=== PATIENT | female | born 1980 | race Two or more races ===

== ENCOUNTER 2021-03-30 10:05 | Outpatient (CLI) | payer OTHER ==
[~2021-03-30 10:05] MED LIST: ZYRTEC1 MG/ML
== END 2021-03-30 10:23 | disposition home or self-care (01) ==
LOC: RAD 10:05
PROVIDERS: ATTEND Internal Medicine Cardiovascular Disease
DX: I10 Essential (primary) hypertension (principal); N60.11 Diffuse cystic mastopathy of right breast; Z12.31 Encounter for screening mammogram for malignant neoplasm of breast

== ENCOUNTER 2021-03-30 11:51 | Outpatient (CLI) | payer OTHER | END 2021-03-30 11:53 | disposition home or self-care (01) | LOC: NUCLEAR 11:51 | PROVIDERS: ATTEND Internal Medicine Cardiovascular Disease | DX: I10 Essential (primary) hypertension (principal) ==

== ENCOUNTER 2024-04-08 20:08 | Emergency (ER) | payer OTHER ==
[~2024-04-08] VITALS: Ht 162.6 cm; Wt 90.7 kg
[2024-04-08] MEDS ORDERED: COZAAR25 MG (20:20)
[2024-04-08] MEDS ORDERED: ORPHENADRINE CITRATE 30 MG/ML AMPUL IM ONE (21:15)
[2024-04-08] MEDS ORDERED: DEXAMETHASONE SODIUM PHOSPHATE 4 MG/ML VIAL IM ONE (21:15)
[2024-04-08] MEDS ORDERED: KETOROLAC TROMETHAMINE 60 MG VIAL IM ONE (21:15)
== END 2024-04-08 21:25 | disposition home or self-care (01) ==
LOC: ER 20:10
DX: G44.209 Tension-type headache, unspecified, not intractable (principal); G47.30 Sleep apnea, unspecified; I10 Essential (primary) hypertension

== ENCOUNTER → 2024-10-17 07:57 | Outpatient (CLI) | payer OTHER ==
[~2024-10-17 07:57] MED LIST changes: +COZAAR25 MG
== END | disposition home or self-care (01) ==
LOC: NUCLEAR 07:57
PROVIDERS: ATTEND Internal Medicine Cardiovascular Disease
DX: I10 Essential (primary) hypertension (principal)

== ENCOUNTER 2024-10-17 09:14 | Outpatient (CLI) | payer OTHER | END 2024-10-17 09:17 | disposition home or self-care (01) | LOC: MAMO-SONO 09:14 | PROVIDERS: ATTEND Internal Medicine Cardiovascular Disease | DX: N60.11 Diffuse cystic mastopathy of right breast (principal); N60.12 Diffuse cystic mastopathy of left breast; Z12.31 Encounter for screening mammogram for malignant neoplasm of breast ==